=== PATIENT | male | born 1960 | race African-American/Black ===

== ENCOUNTER 2017-03-19 11:02 | Emergency (ER) | payer SELFPAY ==
--- NOTE | 2017-03-19 12:16 | RAD ---
FOUR VIEWS LEFT KNEE INDICATION: Chronic pain. COMPARISON: No prior comparison. FINDINGS: There is a mild to moderate joint capsular distention. Moderate osteoarthritis is present. No acut e fracture is seen. There is vascular calcification. IMPRESSION: Osteoarthritis and mild to moderate joint capsular distention of the left knee. POS: [facility]
[2017-03-19] MEDS ORDERED: traMADol HCl 50 MG TAB ONE (12:22)
== END 2017-03-19 12:20 | disposition home or self-care (01) ==
LOC: MADERS 11:02
DX: M17.12 Unilateral primary osteoarthritis, left knee (principal)

== ENCOUNTER 2017-07-16 13:51 | Emergency (ER) | payer SELFPAY ==
[2017-07-16] MEDS ORDERED: traMADol HCl 50 MG TAB ONE (14:19)
[2017-07-16] MEDS ORDERED: Ibuprofen 800 MG TAB ONE (14:20)
[2017-07-16] MEDS ORDERED: Dexamethasone 4 MG TAB ONE (14:20)
== END 2017-07-16 14:26 | disposition home or self-care (01) ==
LOC: MADERS 13:51
DX: M25.562 Pain in left knee (principal)
CPT/HCPCS: 99283; J8540

== ENCOUNTER 2017-08-27 11:31 | Emergency (ER) | payer SELFPAY | END 2017-08-27 11:57 | disposition home or self-care (01) | LOC: MADERS 11:31 | DX: K21.9 Gastro-esophageal reflux disease without esophagitis (principal) | CPT/HCPCS: 99283 ==

== ENCOUNTER 2017-11-17 13:21 | Emergency (ER) | payer SELFPAY ==
[2017-11-17] MEDS ORDERED: Naproxen 500 MG TAB ONE (13:57)
[2017-11-17] MEDS ORDERED: Dexamethasone 4 MG TAB ONE (13:57)
[2017-11-17 14:39] LABS: ALT (SGPT) 20 U/L (8-55); AST (SGOT) 74 U/L (5-34); Albumin 3.6 g/dL (3.5-5.0); Alkaline Phosphatase 70 U/L (40-150); Anion Gap 19 mmol/L (10-20); BUN (Urea Nitrogen) 7 mg/dL (8.4-25.7); Bilirubin, Total 0.8 mg/dL (0.2-1.2); Calc. Creatinine Clearance 0 mL/min (70-130); Calcium 9.6 mg/dL (7.8-10.44); Carbon Dioxide 21 mmol/L (22-29); Chloride 101 mmol/L (98-107); Estimated GFR-MDRD Greater than 90; Globulin 4.8 g/dL (2.4-3.5); Glucose 94 mg/dL (70-105); Potassium 3.7 mmol/L (3.5-5.1); Protein, Total 8.4 g/dL (6.0-8.3); Sodium 137 mmol/L (136-145)
[2017-11-17 14:40] LABS: Band 1 % (5-11); Eosinophils 4 % (0-10); Hemoglobin 15.6 g/dL (14.0-18.0); Lymphocytes 38 % (21-51); MDiff Complete? YES; Mean Corpuscular HGB CONC 33.3 g/dL (32.0-36.0); Mean Corpuscular Hemoglobin 30.2 pg (27.0-31.0); Mean Corpuscular Volume 90.8 fl (80.0-94.0); Mean Platelet Volume 5.9 fL (7.4-10.4); Monocytes 4 % (0-10); Neutrophil 52 % (42-75); PLT Morphology Comment Appears Adequate; Platelet Count 200 thou/uL (130-400); RBC Distribution Width 12.6 % (11.5-14.5); Red Blood Cell (RBC) Count 5.17 mill/uL (4.70-6.10); White Blood Cell (WBC) Count 4.4 thou/uL (4.8-10.8)
== END 2017-11-17 14:55 | disposition home or self-care (01) ==
LOC: MADERS 13:21
DX: R55 Syncope and collapse (principal); M25.462 Effusion, left knee
CPT/HCPCS: 36415; 80053; 85025; 93005; J8540

== ENCOUNTER 2018-06-28 11:49 | Emergency (ER) | payer SELFPAY | END 2018-06-28 12:24 | disposition home or self-care (01) | LOC: MADERS 11:49 | DX: M25.462 Effusion, left knee (principal); M25.561 Pain in right knee | CPT/HCPCS: 99281 ==

== ENCOUNTER 2019-02-23 05:03 | Outpatient (CLI) | payer OTHER ==
--- NOTE | 2019-02-23 07:57 | RAD ---
XR Chest Pa Lat STANDARD HISTORY: Cough, long-term tobacco abuse COMPARISON: 03/26/2012 FINDINGS: The heart size is normal. The lungs are well expanded without focal areas of consolidation, pneumothorax or pleural effusions. Changes of old granulomatous disease are again seen. No acute osseous abnormalities are identified. IMPRESSION: No radiographic evidence of acute cardiopulmonary process.
== END 2019-02-23 05:04 | disposition home or self-care (01) ==
LOC: MADRAD 05:03
PROVIDERS: ATTEND Nurse Practitioner Family
DX: Z72.0 Tobacco use (principal)
CPT/HCPCS: 71046

== ENCOUNTER 2019-03-09 14:29 | Emergency (ER) | payer BC, OTHER ==
--- NOTE | 2019-03-09 15:46 | RAD ---
TWO VIEWS RIGHT HIP: DATE: 03/09/2019. PROVIDED CLINICAL HISTORY: Pain. FINDINGS: There is flattening of the superior aspects of the right femoral head with evidence for cortical disr uption involving the medial and lateral femoral head articular cortex, likely reflecting a subchondra l insufficiency fracture. No additional fracture is evident. Right hip joint space appears preserve d. Atherosclerosis is demonstrated. IMPRESSION: Findings compatible with fracture involving the superior weightbearing portions of the right femoral head, likely reflecting insufficiency fracture. POS: [facility]
== END 2019-03-09 16:00 | disposition left against medical advice (07) ==
LOC: MADERS 14:29
DX: S72.051A Unspecified fracture of head of right femur, initial encounter for closed fracture (principal); M19.90 Unspecified osteoarthritis, unspecified site; X58.XXXA Exposure to other specified factors, initial encounter